=== PATIENT | female | born 1955 ===

== ENCOUNTER 2023-03-11 12:44 | Emergency (ER) | payer MEDICARE ==
[~2023-03-11] VITALS: Ht 177.8 cm; Wt 103.0 kg
[2023-03-11 13:21] VITALS: BP 146/73; PULSE 81; RESP 16; TEMP 99.4; O2SAT 98
[2023-03-11] MEDS ORDERED: cefTRIAXone SOD 1,000 MG VL IM ONE (13:30)
[2023-03-11] MEDS ORDERED: AMOX500T86 PO (13:30)
== END 2023-03-11 14:00 | disposition home or self-care (01) ==
LOC: ER 12:44
DX: S61.432A Puncture wound without foreign body of left hand, initial encounter (principal); S61.431A Puncture wound without foreign body of right hand, initial encounter; W55.01XA Bitten by cat, initial encounter; Y93.89 Activity, other specified; Y92.090 Kitchen in other non-institutional residence as the place of occurrence of the external cause; Y99.8 Other external cause status
CPT/HCPCS: 96372; 99283; J0696